=== PATIENT | female | born 2000 | race Two or more races ===

== ENCOUNTER 2018-11-18 12:28 | Emergency (ER) | payer SELFPAY ==
[~2018-11-18] VITALS: Ht 168.9 cm; Wt 90.7 kg
[2018-11-18 12:30] VITALS: BP 122/74
[2018-11-18] MEDS ORDERED: METFORMIN HCL500 M1 ORAL (12:34)
[2018-11-18 14:14] LABS: APPEARANCE,URINE CLEAR; BILIRUBIN, URINE NEGATIVE (NEGATIVE); KETONES,URINE NEGATIVE (NEGATIVE); UROBILINOGEN,URINE NORMAL MG/DL (0.0-1.0)
[2018-11-18 14:27] LABS: COLOR,URINE PALE YELLOW
[2018-11-18 14:28] LABS: GLUCOSE, URINE (UA) 3+ (NEGATIVE); NITRITE,URINE NEGATIVE (NEGATIVE); PH,URINE 6 (4.5-8.0); PROTEIN,URINE NEGATIVE (NEGATIVE)
[2018-11-18 14:29] LABS: LEUKOCYTE ESTERASE ,URINE NEGATIVE (NEGATIVE)
[2018-11-18 15:36] LABS: ANION GAP 11 mmol/L (5-15); BLOOD UREA NITROGEN 12 mg/dL (7-18); CALCIUM 9.3 MG/DL (8.5-10.1); CARBON DIOXIDE 24 MMOL/L (21-32); CHLORIDE 103 MMOL/L (98-107); CREATININE 0.5 MG/DL (0.55-1.30); POTASSIUM 4.2 MMOL/L (3.5-5.1); SODIUM 138 MMOL/L (136-145)
[2018-11-18 15:40] LABS: ALANINE AMINOTRANSFERASE 33 U/L (12-78); ALBUMIN 3.5 G/DL (3.4-5.0); ALBUMIN/GLOBULIN RATIO 0.9 (1.0-2.7); ALKALINE PHOSPHATASE 90 U/L (46-116); ASPARTATE AMINO TRANSFERASE 34 U/L (15-37); BILIRUBIN,TOTAL 0.3 MG/DL (0.2-1.0)
[2018-11-18 15:42] LABS: BASOPHILS % (AUTO) 1.1 % (0.0-2.0); EOSINOPHILS % (AUTO) 1.8 % (0.0-3.0); HEMATOCRIT 38.8 % (37.0-47.0); HEMOGLOBIN 13.5 G/DL (12.0-16.0); LYMPHOCYTES % (AUTO) 21.6 % (20.0-45.0); MEAN CORPUSCULAR VOLUME 84 FL (80-99); MONOCYTES % (AUTO) 5.3 % (1.0-10.0); NEUTROPHILS % (AUTO) 70.1 % (45.0-75.0); PLATELET COUNT 261 K/UL (150-450); RED CELL DISTRIBUTION WIDTH 11.9 % (11.6-14.8); WHITE BLOOD COUNT 10.7 K/UL (4.8-10.8)
--- NOTE | 2018-11-18 15:51 | Diagnostic Imaging Report ---
Indication: Abdominal pain Technique: Spiral acquisitions obtained through the abdomen and pelvis. No oral contrast utilized, per emergency room physician request No IV contrast utilized, per referring physician request.. Multiplanar reconstructions were generated. Total dose length product 1478.78 mGycm. CTDIvol(s) 26.25 mGy. Dose reduction achieved using automated exposure control Comparison: None Findings: Lack of enteric contrast limits assessment of the GI tract. The appendix is normal. No evidence of diverticulosis or diverticulitis. No small bowel distention. No free or loculated intraperitoneal gas or fluid is evident. The distal esophagus, stomach, duodenum are unremarkable. Lack of IV contrast limits assessment of the solid organs. The liver is mildly hypoattenuating, consistent with fatty change. There is some sparing in the usual location adjacent to the gallbladder fossa. No focal hepatic abnormality otherwise. The gallbladder, bile ducts, pancreas, spleen, adrenals, kidneys are all unremarkable. No retroperitoneal or mesenteric mass or adenopathy. Uterus and ovaries are unremarkable. No pelvic mass or adenopathy. The included lung bases are clear. The bones are unremarkable. Impression: Limited assessment of the GI tract, due to lack of enteric contrast administration Fatty liver No definite acute process The CT scanner at [facility] is accredited by the [employer] and the scans are performed using protocols designed to limit radiation exposure to as low as reasonably achievable to attain images of sufficient resolution adequate for diagnostic evaluation.
--- NOTE | 2018-11-18 16:08 | Emergency Room Report ---
History of Present Illness General Chief Complaint: Abdominal Pain Source: Patient Present Illness HPI 18-year-old female with history of diabetes and heavy alcohol intake here complaining of sudden onset of acute epigastric pain rated 10 out of 10 pain while she was working today. Patient denies nausea vomiting, diarrhea patient. Denies bloody emesis or blood in stool she further denies urinary symptoms such as hematuria. Denies chest pain, shortness of breath, palpitation, syncope , headache or dizziness. Denies acid reflux. Patient reports that she used to drink a daily basis however she suddenly stopped a month ago and she also stopped smoking marijuana month ago. She has not taken any medication for pain and denies pain radiation. Denies any surgical history. Patient reports that her pain started subsiding few minutes ago and does not want anything for pain at this moment Allergies: Coded Allergies: No Known Allergies (Unverified , 11/18/18) Patient History Past Medical History: see triage record Past Surgical History: unable to obtain Pertinent Family History: none Social History: Reports: alcohol use - daily alcohol intake Last Menstrual Period: 10/18/18 Now: No Immunizations: UTD Reviewed Nursing Documentation: PMH: Agreed; PSxH: Agreed Nursing Documentation-PMH Past Medical History: No Stated History Review of Systems All Other Systems: negative except mentioned in HPI Physical Exam Vital Signs Date Time Temp Pulse Resp B/P (MAP) Pulse Ox O2 Delivery O2 Flow Rate FiO2 11/18/18 12:27 97.9 65 18 122/74 (90) 96 Room Air Sp02 EP Interpretation: reviewed, normal General Appearance: normal inspection, no apparent distress, mild distress Head: normocephalic, atraumatic Eyes: bilateral eye normal inspection, bilateral eye PERRL ENT: normal ENT inspection, hearing grossly normal, normal pharynx Neck: normal inspection, full range of motion, supple, thyroid normal Respiratory: normal inspection, chest non-tender, lungs clear, normal breath sounds, no rhonchi, no wheezing Cardiovascular #1: normal inspection, normal peripheral pulses, regular rate, rhythm, no edema, no murmur Gastrointestinal: normal bowel sounds, non tender, no mass, no organomegaly, no peritonitis, no bruit, non-distended, guarding - Epigastric Rectal: deferred Genitourinary: no CVA tenderness Musculoskeletal: normal inspection, back normal Neurologic: normal inspection, alert, oriented x3 Psychiatric: normal inspection, judgement/insight normal, memory normal Skin: normal inspection, normal color, no rash, warm/dry Lymphatic: normal inspection, no adenopathy Medical Decision Making PA Attestation All my diagnosis and treatment plans were reviewed ad discussed with my supervising physician Dr. Mariscal Diagnostic Impression: Primary Impression: GERD (gastroesophageal reflux disease) ER Course 18-year-old female with history of diabetes and heavy alcohol intake here complaining of sudden onset of acute epigastric pain rated 10 out of 10 pain while she was working today. Patient denies nausea vomiting, diarrhea patient. Denies bloody emesis or blood in stool she further denies urinary symptoms such as hematuria. Denies chest pain, shortness of breath, palpitation, syncope , headache or dizziness. Denies acid reflux. Patient reports that she used to drink a daily basis however she suddenly stopped a month ago and she also stopped smoking marijuana month ago. She has not taken any medication for pain and denies pain radiation. Denies any surgical history. Patient reports that her pain started subsiding few minutes ago and does not want anything for pain at this moment Ddx considered but are not limited to: appendicitis, cholycisitis, gastritis, gasthroentritis, UTI, pylonephritis, SBO, diverticulitis, influenza with GI manifestation, DE, complication with , pancreatitis Vital signs: are WNL, pt. is afebrile H&PE are most consistent with: Gastroesophageal reflux disease ORDERS: abdominal CT, abdominal pain set, EKG, abdominal US, omeprazole ED INTERVENTIONS: None required at this time. DISCHARGE: At this time pt. is stable for d/c to home. Will provide printed patient care instructions, and any necessary prescriptions. Care plan and follow up instructions have been discussed with the patient prior to discharge. At this point no sign of pancreatitis noted patient to follow-up with a primary care provider EKG Diagnostic Results Rate: normal Rhythm: NSR ST Segments: no acute changes Chest X-Ray Diagnostic Results Chest X-Ray Diagnostic Results : Chest X-Ray Ordered: Yes # of Views/Limited/Complete: 1 View Indication: Other EP Interpretation: Yes PA Xray: Interpretation reviewed, by supervising MD, and agrees with findings. Interpretation: no consolidation, no effusion, no pneumothorax Impression: No acute disease Electronically Signed by: nahal saheli PA-C CT/MRI/US Diagnostic Results CT/MRI/US Diagnostic Results #1: Imaging Test Ordered: CT abdomen no contrast Impression WNL CT/MRI/US Diagnostic Results #2: Imaging Test Ordered: abd US Impression WNL Last Vital Signs Date Time Temp Pulse Resp B/P (MAP) Pulse Ox O2 Delivery O2 Flow Rate FiO2 11/18/18 12:30 65 18 Room Air 11/18/18 12:30 97.9 122/74 96 Disposition: HOME, SELF-CARE Condition: Stable Scripts Omeprazole (OMEPRAZOLE) 20 Mg Tablet. 20 MG ORAL DAILY, #30 TAB Prov: Margarette Cadet 11/18/18 Patient Instructions: Abdominal Pain, Adult, Gastroesophageal Reflux Disease, Adult, [id number] Additional Instructions: Along with a primary care provider avoid eating spicy and acidic food, avoid eating greasy food Margarette Cadet Nov 18, 2018 16:08
[2018-11-18] MEDS ORDERED: OMEPRAZOLE20 M3 ORAL (16:09)
[2018-11-18 16:20] VITALS: BP 122/74
--- NOTE | 2018-11-18 17:26 | Diagnostic Imaging Report ---
Indication: Abdominal pain Technique: Avitia-scale and duplex images of the upper abdomen were obtained Comparison: none Findings: Gallbladder is unremarkable, without stones, wall thickening, nor pericholecystic fluid. Sonographic Recinos's sign is negative. Common bile duct measures for 3 mm in diameter. No intrahepatic biliary ductal dilatation. Liver demonstrates diffusely increased echogenicity, consistent with diffuse hepatocellular disease, most likely fatty change. Portal vein and hepatic veins are patent. Pancreas is unremarkable. Spleen is unremarkable. Left kidney measures 13.9 cm in length. Right kidney measures 12 cm length. Both kidneys demonstrate normal echogenicity. There is no hydronephrosis. No focal abnormality . Non-aneurysmal abdominal aorta . Impression: Liver demonstrates diffusely increased echogenicity, consistent with diffuse hepatocellular disease, most likely fatty change. This is also demonstrated on subsequent CT scan Negative for gallstones or dilated bile ducts or other significant findings
--- NOTE | 2018-11-18 17:48 | Diagnostic Imaging Report ---
Indication: Chest pain Technique: One view of the chest Comparison: none Findings: Body habitus limits evaluation. The heart is enlarged. The lungs and pleural spaces are grossly clear. The bones are unremarkable Impression: Cardiomegaly. No acute process
--- NOTE | 2018-11-20 19:28 | Cardiology Report ---
APPROVED REPORT EKG Measurement Heart [id number] Normal sinus rhythm Normal ECG
== END 2018-11-18 17:00 | disposition home or self-care (01) ==
LOC: EDBD 12:28 → EMR 16:46
DX: K21.9 Gastro-esophageal reflux disease without esophagitis (principal)
CPT/HCPCS: 36415; 71045; 74176; 76700; 80053; 80307; 81003; 81025; 83690; 84484; 85025; 93005; 99284; G0480; 80329